=== PATIENT | female | born 1940 | race African-American/Black ===

== ENCOUNTER 2021-02-12 12:04 | Outpatient (CLI) | payer MEDICARE, MEDICAID ==
[2021-02-12 22:44] LABS: SARS-CoV-2 PCR by NAA Not Detected (NotDetected)
== END 2021-02-12 12:05 | disposition home or self-care (01) ==
LOC: CSHLAB 12:04
PROVIDERS: ATTEND Urology
DX: Z20.822 Contact with and (suspected) exposure to COVID-19 (principal)
CPT/HCPCS: U0003; U0005